=== PATIENT | male | born 1990 | race Caucasian/White ===

== ENCOUNTER 2018-08-14 15:57 | Emergency (ER) | payer SELFPAY ==
[~2018-08-14] VITALS: Ht 170.2 cm; Wt 100.0 kg
[2018-08-14] MEDS ORDERED: FentaNYL CITRATE-PF 100 MCG/2 ML VIAL IVP ONE (17:30)
[2018-08-14] MEDS ORDERED: ONDANSETRON HCL 4 MG/2 ML VIAL IVP ONE (17:30)
[2018-08-14] MEDS ORDERED: ETOMIDATE 2 MG/ML 10 ML VIAL IVP ONE (18:00)
[2018-08-14] MEDS ORDERED: OXYGEN THERAPY IH ONE (20:00)
[2018-08-14 20:35] VITALS: BP 141/86
== END 2018-08-14 20:36 | disposition home or self-care (01) ==
LOC: EMS 15:58
DX: S43.014A Anterior dislocation of right humerus, initial encounter (principal); M21.921 Unspecified acquired deformity of right upper arm; F12.90 Cannabis use, unspecified, uncomplicated; F17.210 Nicotine dependence, cigarettes, uncomplicated; W18.39XA Other fall on same level, initial encounter; Y93.89 Activity, other specified; Y92.89 Other specified places as the place of occurrence of the external cause; Y99.8 Other external cause status
CPT/HCPCS: 23650; 73020; 73030; 96374; 96375; 99285; J2405; J3010; J3490; 29240; 99152